=== PATIENT | male | born 1965 | race African-American/Black ===

== ENCOUNTER 2017-05-01 11:07 | Inpatient (IN) | payer OTHER ==
[2017-05-01 11:40] VITALS: BMI 22.4
--- NOTE | 2017-05-01 13:12 | HP ---
CIWA Score - CIWA Score Nausea/Vomitin Muscle Tremors: 3 Anxiety: 3 Agitation: 3 Paroxysmal Sweats: 2 Orientation: 0-Oriented Tacttile Disturbances: 2-Mild Itch/Numbness/Burn Auditory Disturbances: 2-Mild Harshness/Frighten Visual Disturbances: 1-Very Mild Sensitivity Headache: 2-Mild CIWA-Ar Total Score: 21 Admission ROS BHS - HPI Chief Complaint: I NEED HELP TO STOP DRINKING ALCOHOL AND COCAINE,I WANTED TO GET ON TRACK Allergies/Adverse Reactions: Allergies Allergy/AdvReac Type Severity Reaction Status Date / Time No Known Drug Allergies Allergy Verified 05/01/17 13:05 lactose AdvReac Intermediate Nausea Verified 05/01/17 13:05 History of Present Illness: THIS 52 YEARS OLD MALE WITH ALCOHOL AND COCAINE DEPENDENCE,SEEKING DETOX, WITHDRAWAL SYMPTOM,LAST DETOX [facility] IN 02/03 SYNCOPE MULTIPLE ADMISSIONS IN DETOX WEIGHT LOSS LONGEST PERIOD OF SOBRIETY 18 MONTHS - Ebola screening Have you traveled outside of the country in the last 21 days: No (N) Have you had contact with anyone from an Ebola affected area: No Have you been sick,other than usual withdrawal symptoms: No Do you have a fever: No - Review of Systems Constitutional: Loss of Appetite, Malaise, Night Sweats, Changes in sleep, Weakness, Unintentional Wgt. Loss EENT: reports: Nose Congestion Respiratory: reports: No Symptoms reported, Productive cough Cardiac: reports: No Symptoms Reported GI: reports: Diarrhea, Nausea, Vomiting, Abdominal cramping : reports: No Symptoms Reported Musculoskeletal: reports: Back Pain, Muscle Pain Integumentary: reports: Dryness Neuro: reports: Headache, Tremors Endocrine: reports: No Symptoms Reported Hematology: reports: No Symptoms Reported Psychiatric: reports: No Sypmtoms Reported, Judgement Intact, Mood/Affect Appropiate, Orientated x3 Patient History - Patient Medical History Hx Anemia: No Hx Asthma: No Hx Chronic Obstructive Pulmonary Disease (COPD): No Hx Cancer: No Hx Cardiac Disorders: No Hx Congestive Heart Failure: No Hx Hypertension: No Hx Hypercholesterolemia: No Hx Pacemaker: No HX Cerebrovascular Accident: No Hx Seizures: No Hx Dementia: No Hx Diabetes: No Hx Gastrointestinal Disorders: No Hx Liver Disease: No Hx Genitourinary Disorders: No Hx Sexually Transmitted Disorders: No Hx Renal Disease (ESRD): No Hx Thyroid Disease: No Hx Human Immunodeficiency Virus (HIV): No (LAST TESTED 02/03 NEGATIVE) Hx Hepatitis C: No Hx Depression: No Hx Suicide Attempt: No Hx Bipolar Disorder: No Hx Schizophrenia: No Other Medical History: NO SUICIDAL,NO HOMICIDAL - Patient Surgical History Past Surgical History: No Anesthesia Reaction: No - PPD History Previous Implant?: Yes Documented Results: Positive w/o proof Implanted On Prior [facility] Admission?: No PPD to be Administered?: No - Smoking Cessation Smoking history: Current every day smoker Have you smoked in the past 12 months: Yes Aproximately how many cigarettes per day: 10 Cigars Per Day: 0 Hx Chewing Tobacco Use: No Initiated information on smoking cessation: Yes 'Breaking Loose' booklet given: 05/01/17 - Substance & Tx. History Hx Alcohol Use: Yes Hx Substance Use: Yes Substance Use Type: Alcohol, Cocaine Hx Substance Use Treatment: Yes ([facility] 02/03 ) - Substances Abused Alcohol Route: Oral Frequency: Daily Amount used: BEER(6-PK 12 OZ CANS) Age of first use: 13 Date of Last Use: 04/30/17 Cocaine Route: Smoking Frequency: 3-6 times per week Amount used: $100 Age of first use: 18 Date of Last Use: 04/29/17 Family Disease History - Family Disease History Family Disease History: Other: Father (,EMPHYSEMA), Mother ( PANCREATIC CANCER), Sister (alcohol) Admission Physical Exam S - Vital Signs Vital Signs: Vital Signs - 24 hr 05/01/17 11:38 Temperature 98.0 F Pulse Rate 67 Respiratory 18 Rate Blood Pressure 124/76 - Physical General Appearance: Yes: Moderate Distress, Tremorous, Irritable, Sweating, Anxious HEENTM: Yes: Normal ENT Inspection, VESNA, Pharynx Normal Respiratory: Yes: Lungs Clear, Normal Breath Sounds, No Respiratory Distress Neck: Yes: Within Normal Limits, Supple, Trachea in good position Breast: Yes: Within Normal Limits Cardiology: Yes: Within Normal Limits, Regular Rhythm, Regular Rate, S1, S2 Abdominal: Yes: Within Normal Limits, Normal Bowel Sounds, Non Tender, Flat, Soft Genitourinary: Yes: Within Normal Limits Back: Yes: Muscle Spasm Musculoskeletal: Yes: Back pain, Muscle Pain Extremities: Yes: Within Normal Limits, Normal Range of Motion, Tremors 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, Fully Oriented, Alert, Motor Strength 5/5 Integumentary: Yes: Dry Lymphatic: Yes: Within Normal Limits - Diagnostic (1) Alcohol dependence with uncomplicated withdrawal Current Visit: Yes Status: Acute (2) Benign prostatic hypertrophy Current Visit: No Status: Acute (3) Cocaine dependence Current Visit: No Status: Acute (4) Nicotine dependence Current Visit: No Status: Acute (5) Syncope Current Visit: No Status: Acute (6) Weight decreased Current Visit: No Status: Acute Cleared for Admission S - Detox or Rehab [facility] Level of Care: Medically Managed Detox Regimen/Protocol: Librium [facility] Breath Alcohol Content Breath Alcohol Content: 0 Urine Drug Screen - Results Drug Screen Negative: No Urine Drug Screen Results: ANIBAL-Cocaine
[2017-05-01] MEDS ORDERED: MAG HYDROX/AL HYDROX/SIMETH 30 ML UNIT-DOSE CUP PO PRN (13:21)
[2017-05-01] MEDS ORDERED: MAGNESIUM HYDROX 2400MG/30ML ORAL SUSPENSION 30 ML CUP PO PRN (13:21)
[2017-05-01] MEDS ORDERED: MAGNESIUM CITRATE 300 ML BOTTLE PO PRN (13:21)
[2017-05-01] MEDS ORDERED: LOPERAMIDE HCL 2 MG CAPSULE PO PRN (13:21)
[2017-05-01] MEDS ORDERED: IBUPROFEN 400 MG TABLET (FP) PO PRN (13:21)
[2017-05-01] MEDS ORDERED: ACETAMINOPHEN 325 MG TABLET (FP) PO PRN (13:21)
[2017-05-01] MEDS ORDERED: P-EPHED 60MG/TRIPROLIDI 2.5MG TABLET PO PRN (13:21)
[2017-05-01] MEDS ORDERED: chlordiazePOXIDE HCL 25 MG CAPSULE PO PRN (13:21)
[2017-05-01] MEDS ORDERED: chlordiazePOXIDE HCL 25 MG CAPSULE PO ONE (13:54)
[2017-05-01] MEDS: NICOTINE 14 MG/24 HOURS TOPICAL PATCH TD SCH (14:07)
[2017-05-01 17:08] LABS: URINE APPEARANCE SLCLOUDY; URINE BILIRUBIN NEGATIVE (NEGATIVE); URINE BLOOD NEGATIVE (NEGATIVE); URINE COLOR YELLOW; URINE GLUCOSE (UA) NEGATIVE (NEGATIVE); URINE KETONE NEGATIVE (NEGATIVE); URINE LEUK ESTERASE NEGATIVE (NEGATIVE); URINE NITRITE POSITIVE (NEGATIVE); URINE PROTEIN NEGATIVE (NEGATIVE); URINE UROBILINOGEN NEGATIVE mg/dL (0.2-1.0)
[2017-05-01 17:29] LABS: EPI CELLS RARE /HPF (FEW); URINE BACTERIA RARE /hpf (NONE SEEN); URINE MUCUS RARE
[2017-05-01] MEDS: TAMSULOSIN HCL 0.4 MG CAP.ER.24H (FP) PO SCH (17:52)
[2017-05-01] MEDS: chlordiazePOXIDE HCL 25 MG CAPSULE PO SCH ×2 (17:52→22:21)
[2017-05-01] MEDS: guaiFENesin/D-METHORPHAN HB 10 ML UNIT-DOSE CUPS PO PRN (17:53)
[2017-05-01] MEDS: THIAMINE HCL 100 MG TABLET (FP) PO SCH (22:21)
[2017-05-02] MEDS: MENTHOL/PHENOL 1 EACH UD MM PRN ×3 (00:47→23:53)
[2017-05-02] MEDS: guaiFENesin/D-METHORPHAN HB 10 ML UNIT-DOSE CUPS PO PRN ×3 (00:47→20:50)
[2017-05-02] MEDS: chlordiazePOXIDE HCL 25 MG CAPSULE PO SCH ×4 (05:29→22:21)
[2017-05-02] MEDS ORDERED: AZITHROMYCIN 250 MG TABLET PO ONE (09:02)
[2017-05-02 09:55] LABS: HEMATOCRIT 43.1 % (35.4-49); HEMOGLOBIN 13.9 GM/dL (11.7-16.9); MCHC 32.3 g/dl (32.0-35.9); MEAN CELL VOLUME 83.7 fl (80-96); MEAN PLT VOLUME 8.6 fl (7.5-11.1); PLATELET COUNT 256 K/MM3 (134-434); RBC 5.14 M/mm3 (4.00-5.60); RDW 14.1 % (11.9-15.9); WHITE BLOOD COUNT 7.4 K/mm3 (4.0-10.0)
--- NOTE | 2017-05-02 09:58 | PN ---
S CIWA - CIWA Score Nausea/Vomitin Muscle Tremors: 3 Anxiety: 3 Agitation: 2 Paroxysmal Sweats: 1-Minimal Palms Moist Orientation: 0-Oriented Tacttile Disturbances: 1-Very Mild Itch/Numbness Auditory Disturbances: 1-Very Mild Visual Disturbances: 0-None Headache: 2-Mild CIWA-Ar Total Score: 16 BHS Progress Note (SOAP) Subjective: ALERT,IRRITABLE,ANXIOUS,TREMOR,INTERRUPTED SLEEP Objective: 05/02/17 10:01 Vital Signs Temperature 96.4 F L 05/02/17 06:17 Pulse Rate 97 H 05/02/17 06:17 Respiratory Rate 18 05/02/17 06:17 Blood Pressure 117/85 05/02/17 06:17 O2 Sat by Pulse Oximetry (%) EKG NSR,NOR MAL ECG Laboratory Last Values WBC 7.4 K/mm3 (4.0-10.0) 05/02/17 05:45 RBC 5.14 M/mm3 (4.00-5.60) 05/02/17 05:45 Hgb 13.9 GM/dL (11.7-16.9) D 05/02/17 05:45 Hct 43.1 % (35.4-49) 05/02/17 05:45 MCV 83.7 fl (80-96) 05/02/17 05:45 MCH 27.0 pg (25.7-33.7) 05/02/17 05:45 MCHC 32.3 g/dl (32.0-35.9) 05/02/17 05:45 RDW 14.1 % (11.9-15.9) 05/02/17 05:45 Plt Count 256 K/MM3 (134-434) 05/02/17 05:45 MPV 8.6 fl (7.5-11.1) 05/02/17 05:45 Urine Color Yellow 05/01/17 13:00 Urine Appearance Slcloudy 05/01/17 13:00 Urine pH 7.0 (5.0-8.0) 05/01/17 13:00 Ur Specific [place] 1.014 (1.001-1.035) 05/01/17 13:00 Urine Protein Negative (NEGATIVE) 05/01/17 13:00 Urine Glucose (UA) Negative (NEGATIVE) 05/01/17 13:00 Urine Ketones Negative (NEGATIVE) 05/01/17 13:00 Urine Blood Negative (NEGATIVE) 05/01/17 13:00 Urine Nitrite Positive (NEGATIVE) 05/01/17 13:00 Urine Bilirubin Negative (NEGATIVE) 05/01/17 13:00 Urine Urobilinogen Negative mg/dL (0.2-1.0) 05/01/17 13:00 Ur Leukocyte Esterase Negative (NEGATIVE) 05/01/17 13:00 Urine WBC (Auto) 2 /hpf (3-5) 05/01/17 13:00 Urine RBC (Auto) 1 /hpf (0-3) 05/01/17 13:00 Ur Epithelial Cells Rare /HPF (FEW) 05/01/17 13:00 Urine Bacteria Rare /hpf (NONE SEEN) 05/01/17 13:00 Urine Mucus Rare 05/01/17 13:00 HIV 1&2 Antibody Screen Negative 05/01/17 14:00 HIV P24 Antigen Negative 05/01/17 14:00 LABS PENDING Assessment: 05/02/17 10:03 WITHDRAWAL SYMPTOM Plan: CONTINUE DETOX
--- NOTE | 2017-05-02 10:06 | PN ---
BHS Progress Note Note: COUGHING WITH YELLOWISH MUCOUS FOR 7 DAYS,LUNG CLEAR,ACUTE BRONCHITIS, START ON ZITHROMAX
[2017-05-02 10:36] LABS: CHLORIDE 104 mmol/L (98-107); POTASSIUM 4.1 mmol/L (3.5-5.1); SODIUM 139 mmol/L (136-145)
[2017-05-02] MEDS: NICOTINE 14 MG/24 HOURS TOPICAL PATCH TD SCH ×2 (10:36→10:40)
[2017-05-02] MEDS: PRENATAL VITAMINS W/ FOLIC ACID TABLET (FP) PO SCH (10:36)
[2017-05-02] MEDS: TAMSULOSIN HCL 0.4 MG CAP.ER.24H (FP) PO SCH ×2 (10:39→18:19)
[2017-05-02 10:59] LABS: ALBUMIN 3.5 g/dl (3.4-5.0); ALK PHOS 98 U/L (45-117); ANION GAP 8 (8-16); BILIRUBIN,TOTAL 0.6 mg/dL (0.2-1.0); BLOOD UREA NITROGEN 10 mg/dL (7-18); CALCIUM 9.2 mg/dL (8.5-10.1); CO2 27 mmol/L (21-32); GLUCOSE,RANDOM 81 mg/dL (74-106); SGOT/AST 29 U/L (15-37); SGPT/ALT 34 U/L (12-78); TOT PROT 6.5 g/dl (6.4-8.2)
--- NOTE | 2017-05-02 13:56 | EKG ---
Test Reason : Blood Pressure : / mmHG Vent. Rate : 078 BPM Atrial Rate : 078 BPM P-R Int : 178 ms QRS Dur : 086 ms QT Int : 370 ms P-R-T Axes : 063 033 038 degrees QTc Int : 421 ms NORMAL SINUS RHYTHM NORMAL ECG WHEN COMPARED WITH ECG OF 01-MAY-2017 14:10, NO SIGNIFICANT CHANGE WAS FOUND Confirmed by MD Fleming Edward ([id number]) on 05/02/2017 1:56:05 PM Referred By: Confirmed By:Fredrick Fleming MD
--- NOTE | 2017-05-02 14:00 | EKG ---
Test Reason : Blood Pressure : / mmHG Vent. Rate : 054 BPM Atrial Rate : 054 BPM P-R Int : 178 ms QRS Dur : 082 ms QT Int : 398 ms P-R-T Axes : 064 025 055 degrees QTc Int : 377 ms SINUS BRADYCARDIA POSSIBLE LEFT ATRIAL ENLARGEMENT BORDERLINE ECG NO PREVIOUS ECGS AVAILABLE Confirmed by MD Bernadette, Fredrick ([id number]) on 05/02/2017 2:00:29 PM Referred By: Confirmed By:Fredrick Fleming MD
[2017-05-02] MEDS: THIAMINE HCL 100 MG TABLET (FP) PO SCH (22:21)
[2017-05-03] MEDS: chlordiazePOXIDE HCL 25 MG CAPSULE PO SCH ×2 (06:07→10:18)
[2017-05-03] MEDS: hydrOXYzine PAMOATE 50 MG CAPSULE (FP) PO PRN ×2 (09:48→22:40)
[2017-05-03] MEDS: NICOTINE 14 MG/24 HOURS TOPICAL PATCH TD SCH (09:52)
[2017-05-03] MEDS ORDERED: AZITHROMYCIN 250 MG TABLET PO SCH (10:00)
[2017-05-03] MEDS: TAMSULOSIN HCL 0.4 MG CAP.ER.24H (FP) PO SCH (10:18)
[2017-05-03] MEDS: PRENATAL VITAMINS W/ FOLIC ACID TABLET (FP) PO SCH (10:19)
--- NOTE | 2017-05-03 10:53 | PN ---
S CIWA - CIWA Score Nausea/Vomitin Muscle Tremors: 3 Anxiety: 2 Agitation: 2 Paroxysmal Sweats: 1-Minimal Palms Moist Orientation: 0-Oriented Tacttile Disturbances: 1-Very Mild Itch/Numbness Auditory Disturbances: 1-Very Mild Visual Disturbances: 0-None Headache: 2-Mild CIWA-Ar Total Score: 15 BHS Progress Note (SOAP) Subjective: alert,irritable,anxious,interrupted sleep,tremor Objective: 05/03/17 10:49 Vital Signs Temperature 97.2 F L 05/03/17 10:22 Pulse Rate 81 05/03/17 10:22 Respiratory Rate 20 05/03/17 10:22 Blood Pressure 101/60 05/03/17 10:22 O2 Sat by Pulse Oximetry (%) Assessment: 05/03/17 10:50 withdrawal symptom but less Plan: continue detox,patient stated taking flomax 0.4 mgs po nightly,will changed flomax to 0.4 mg po hs
[2017-05-03] MEDS: chlordiazePOXIDE 5 MG CAPSULE PO SCH ×2 (17:09→22:39)
[2017-05-03] MEDS ORDERED: TAMSULOSIN HCL 0.4 MG CAP.ER.24H (FP) PO SCH (18:00)
[2017-05-03] MEDS: MENTHOL/PHENOL 1 EACH UD MM PRN (20:33)
[2017-05-03] MEDS: THIAMINE HCL 100 MG TABLET (FP) PO SCH (22:39)
[2017-05-03] MEDS: guaiFENesin/D-METHORPHAN HB 10 ML UNIT-DOSE CUPS PO PRN (22:41)
[2017-05-04] MEDS: chlordiazePOXIDE 5 MG CAPSULE PO SCH (05:32)
[2017-05-04] MEDS: guaiFENesin/D-METHORPHAN HB 10 ML UNIT-DOSE CUPS PO PRN (05:34)
[2017-05-04] MEDS: MENTHOL/PHENOL 1 EACH UD MM PRN (05:35)
[2017-05-04 06:27] VITALS: BP 102/71; TEMP 97.7
[2017-05-04 06:35] VITALS: PULSE 93
--- NOTE | 2017-05-04 08:06 | PN ---
BHS Progress Note (SOAP) Subjective: ALERT,NO COMPLAINT Objective: 05/04/17 08:04 Vital Signs Temperature 97.7 F 05/04/17 06:00 Pulse Rate 93 H 05/04/17 06:00 Respiratory Rate 18 05/04/17 06:00 Blood Pressure 102/71 05/04/17 06:00 O2 Sat by Pulse Oximetry (%) Assessment: 05/04/17 08:04 NO WITHDRAWAL SYMPTOM PATIENT IS STABLE FOR DISCHARGE Plan: DISCHARGE TODAY,FOLLOW UP WITH AFTER CARE PROGRAM ARRANGEMENT
--- NOTE | 2017-05-04 08:11 | DS ---
[facility] Detox Discharge Summary Admission Date: 05/01/17 Discharge Date: 05/04/17 - History Present History: Alcohol Dependence, Cocaine Dependence Additional Comments: PATIENT IS STABLE FOR DISCHARGE,FOLLOW UP WITH AFTER CARE PROGRAM ARRANGEMENT Pertinent Past History: BPH NICOTINE DEPENDENCE SYNCOPE WEIGHT DECREASE - Physical Exam Results Vital Signs: Vital Signs Temperature 97.7 F 05/04/17 06:00 Pulse Rate 93 H 05/04/17 06:00 Respiratory Rate 18 05/04/17 06:00 Blood Pressure 102/71 05/04/17 06:00 O2 Sat by Pulse Oximetry (%) - Treatment Hospital Course: Detox Protocol Followed, Detoxed Safely, Responded well, Discharged Condition Good Patient has Accepted a Rehab Referral to: DECLINED - Medication Discharge Medications: Ambulatory Orders Tamsulosin HCl [Flomax -] 0.4 mg PO BID #[id number] 06/08/14 - Diagnosis (1) Alcohol dependence with uncomplicated withdrawal Current Visit: Yes Status: Acute (2) Benign prostatic hypertrophy Current Visit: No Status: Acute (3) Cocaine dependence Current Visit: No Status: Acute (4) Nicotine dependence Current Visit: No Status: Acute (5) Syncope Current Visit: No Status: Acute (6) Weight decreased Current Visit: No Status: Acute - AMA Did Patient Leave Against Medical Advice: No
[2017-05-04] MEDS ORDERED: chlordiazePOXIDE HCL 10 MG CAPSULE PO SCH (17:00)
== END 2017-05-04 09:00 | disposition home or self-care (01) | DRG 774 ==
LOC: YASAS 11:07 → Y6N 13:29
PROVIDERS: ADMIT Internal Medicine; ATTEND Internal Medicine
PROC: HZ2ZZZZ Detoxification Services for Substance Abuse Treatment (ICD-10-PCS; principal; 2017-05-01)
DX: F10.230 Alcohol dependence with withdrawal, uncomplicated (principal); F14.20 Cocaine dependence, uncomplicated; F17.210 Nicotine dependence, cigarettes, uncomplicated; N40.0 Benign prostatic hyperplasia without lower urinary tract symptoms; R55 Syncope and collapse; R63.4 Abnormal weight loss; Z68.22 Body mass index [BMI] 22.0-22.9, adult
CPT/HCPCS: 36415; 71045-TC-FY; 80053; 81003; 81015; 85027; 86593; 87389; 93005; 93010

== ENCOUNTER 2018-07-19 12:07 | Inpatient (IN) | payer OTHER | END 2018-08-02 10:30 | disposition home or self-care (01) | LOC: YASAS 12:07 → Y5N 14:01 ==

== ENCOUNTER 2019-02-16 14:43 | Inpatient (IN) | payer OTHER ==
[2019-02-16 15:50] VITALS: BMI 20.7
--- NOTE | 2019-02-16 20:22 | HP ---
CIWA Score Nausea/Vomitin-Mild Nausea/No Vomiting Muscle Tremors: None Anxiety: 4-Mod. Anxious/Guarded Agitation: 4-Moderately Restless Paroxysmal Sweats: 3 Orientation: 0-Oriented Tacttile Disturbances: 0-None Auditory Disturbances: 2-Mild Harshness/Frighten (to loud noise) Visual Disturbances: 3-Moderate Sensitivity (bright lights) Headache: 3-Moderate CIWA-Ar Total Score: 20 - Admission Criteria [facility] Guidelines: Admission for Medically Managed Detox: Requires at least one of the followin. CIWA greater than 12 2. Seizures within the past 24 hours 3. Delirium tremens within the past 24 hours 4. Hallucinations within the past 24 hours 5. Acute intervention needed for co occurring medical disorder 6. Acute intervention needed for co occurring psychiatric disorder 7. Severe withdrawal that cannot be handled at a lower level of care (continued vomiting, continued diarrhea, abnormal vital signs) requiring intravenous medication and/or fluids 8. Patient presents the following: CIWA greater than 12 Admission Criteria Met: Admission criteria met Admitting History and Physical - Smoking History Smoking history: Current every day smoker Have you smoked in the past 12 months: Yes Aproximately how many cigarettes per day: 10 - Alcohol/Substance Use Hx Alcohol Use: Yes Admission ROS S - HPI Chief Complaint: seeking detox for alcohol dependence Allergies/Adverse Reactions: Allergies Allergy/AdvReac Type Severity Reaction Status Date / Time No Known Drug Allergies Allergy Verified 07/19/18 12:45 lactose AdvReac Intermediate Nausea Verified 02/16/19 15:46 History of Present Illness: HERE FOR ALCOHOL DETOX. CLIENT IS SELF REFERRED. KNOWN TO THE PROGRAM. LAST HERE 07/2018. CLIENT REPORTS RELAPSING ABOUT 5 MONTHS AFTER DC. HE REPORTS DAILY USE OF ALCOHOL FOR THE PAST 3 MONTHS. SEVERAL CANS OF BEERS AND 5 NIPS OF VODKA. LAST USE TODAY AROUND 2 AM. 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 DENIES SEIZURES, + AVH WHEN USING CRACK. PRESENTLY DENIES. LONGEST CLEAN TIME 8.5 MONTHS X 2. LIVES WITH FAMILY, UNEMPLOYED, [place]. Exam Limitations: No Limitations - Ebola screening Have you traveled outside of the country in the last 21 days: No Have you had contact with anyone from an Ebola affected area: No Have you been sick,other than usual withdrawal symptoms: No Do you have a fever: No - Review of Systems Constitutional: Chills, Loss of Appetite, Night Sweats, Changes in sleep EENT: reports: Blurred Vision (EYE GLASSES READING), Dental Problems (MISSING TOOTH) Respiratory: reports: No Symptoms reported, Other (TB EXPOSURE WITH TXMENT) Cardiac: reports: No Symptoms Reported GI: reports: Nausea, Poor Appetite, Poor Fluid Intake : reports: Other (BPH W/ URINARY RETENTION) Musculoskeletal: reports: Joint Pain (R/T OA) Integumentary: reports: Other (R HAND ABRASIONS FROM A FALL 2 DAYS AGO WHILE INTOXICATED) Neuro: reports: Headache, Numbness (BOTH FEET), Other (BLACK OUTS) Endocrine: reports: No Symptoms Reported Hematology: reports: No Symptoms Reported Psychiatric: reports: Orientated x3, Agitated (IRRITABLE), Anxious Other Systems: Reviewed and Negative Patient History - Patient Medical History Hx Anemia: No Hx Asthma: No Hx Chronic Obstructive Pulmonary Disease (COPD): Yes Hx Cancer: No Hx Cardiac Disorders: No Hx Congestive Heart Failure: No Hx Hypertension: No Hx Hypercholesterolemia: No Hx Pacemaker: No HX Cerebrovascular Accident: No Hx Seizures: No Hx Dementia: No Hx Diabetes: No Hx Gastrointestinal Disorders: No Hx Liver Disease: No Hx Genitourinary Disorders: Yes (BPH) Hx Sexually Transmitted Disorders: No Hx Renal Disease (ESRD): No Hx Thyroid Disease: No Hx Human Immunodeficiency Virus (HIV): No Hx Hepatitis C: No Hx Depression: No Hx Suicide Attempt: No Hx Bipolar Disorder: No Hx Schizophrenia: No Other Medical History: +PPD, - Patient Surgical History Past Surgical History: No Anesthesia Reaction: No - PPD History Previous Implant?: No Documented Results: Positive w/o proof Implanted On Prior [facility] Admission?: No Date: 05/02/17 Results: CXR PPD to be Administered?: No - Smoking Cessation Smoking history: Current every day smoker Have you smoked in the past 12 months: Yes Aproximately how many cigarettes per day: 10 Cigars Per Day: 0 Hx Chewing Tobacco Use: No Initiated information on smoking cessation: Yes 'Breaking Loose' booklet given: 02/16/19 - Substance & Tx. History Hx Alcohol Use: Yes Hx Substance Use: Yes Substance Use Type: Alcohol, Cocaine Hx Substance Use Treatment: Yes ([facility]) - Substances abused Alcohol Substance route: Oral Frequency: Daily Amount used: 2 six pks beers ( 12 oz cans) 4nips Age of first use: 13 Date of last use: 02/16/19 (1/2 PINT) Crack Substance route: Smoking Frequency: Daily Amount used: 1 gram Age of first use: 18 Date of last use: 02/16/19 Cocaine Substance route: Smoking Frequency: Daily Amount used: 1 gram Age of first use: 18 Date of last use: 02/16/19 Admission Physical Exam S - Vital Signs Vital Signs: Vital Signs - 24 hr 02/16/19 15:47 Temperature 97.3 F L Pulse Rate 92 H Respiratory 16 Rate Blood Pressure 102/70 - Physical General Appearance: Yes: Mild Distress, Tremorous (FELT), Sweating, Anxious HEENTM: Yes: EOMI, Normocephalic, Normal Voice, VESNA, Pharynx Normal, Other ( MISSING TEETH) Respiratory: Yes: Chest Non-Tender, Lungs Clear, Normal Breath Sounds, No Respiratory Distress, No Accessory Muscle Use Neck: Yes: No masses,lesions,Nodules, Supple, Trachea in good position Breast: Yes: Breasts Symetrical Cardiology: Yes: Regular Rhythm, Regular Rate, S1, S2 Abdominal: Yes: Non Tender, Soft, Increased Bowel Sounds Genitourinary: Yes: Pain (RETENTION 2/2 BPH WITH INCOMPLETE BLADDER EMPTYING. CLIENT REPORTS DAILY SELF CATHERIZATION) Back: Yes: Within Normal Limits Musculoskeletal: Yes: full range of Motion, Gait Steady Extremities: Yes: Normal Range of Motion, Tremors (FELT), Swelling (R HAND S/P DALL 2 DAYS AGO. SEEN IN [facility] ER TODAY. XRAY OF R HAND NEG FOR FX AND DISLOCATION. SEE ATTACHED REPORT) Neurological: Yes: Fully Oriented, Alert, Motor Strength 5/5, Other (ANXIOUS) Integumentary: Yes: Dry, Warm, Other (ABRASION TO FINGERS OF R HAND 2/2 TO FALL. NO SX/S OF INFECTION) Lymphatic: Yes: Within Normal Limits - Diagnostic (1) Urinary retention due to benign prostatic hyperplasia Current Visit: Yes Status: Chronic (2) Urinary retention with incomplete bladder emptying Current Visit: Yes Status: Chronic (3) Abrasion of finger of right hand Current Visit: Yes Status: Acute Qualifiers: Encounter type: subsequent encounter Qualified Code(s): S60.419D - Abrasion of unspecified finger, subsequent encounter (4) Cocaine dependence, uncomplicated Current Visit: Yes Status: Acute (5) Alcohol dependence with uncomplicated withdrawal Current Visit: Yes Status: Acute (6) Benign prostatic hypertrophy Current Visit: Yes Status: Chronic (7) Intermittent self-catheterization of bladder Current Visit: Yes Status: Chronic (8) Nicotine dependence Current Visit: Yes Status: Chronic Qualifiers: Nicotine product type: cigarettes Substance use status: uncomplicated Qualified Code(s): F17.210 - Nicotine dependence, cigarettes, uncomplicated (9) Non compliance w medication regimen Current Visit: Yes Status: Suspected Cleared for Admission S - Detox or Rehab S Level of Care: Medically Managed (VALIUM) Detox Regimen/Protocol: Valium Claeared for Rehab Admission: No Breathalyzer - Breathalyzer Breathalyzer: 0 Urine Drug Screen - Test Device Lot number: [id number] Expiration date: 10/17/20 - Control Is test valid?: Yes - Results Drug screen NEGATIVE: No Urine drug screen results: ANIBAL-Cocaine Inpatient Rehab Admission - Rehab Decision to Admit Inpatient rehab admission?: No
[2019-02-16] MEDS ORDERED: ACETAMINOPHEN 325 MG TABLET (FP) PO PRN ×2 (20:32)
[2019-02-16] MEDS ORDERED: NICOTINE POLACRILEX 2 MG GUM BUC PRN (20:32)
[2019-02-16] MEDS ORDERED: MAGNESIUM HYDROX 2400MG/30ML ORAL SUSPENSION 30 ML CUP PO PRN (20:32)
[2019-02-16] MEDS ORDERED: MAG HYDROX/AL HYDROX/SIMETH 30 ML UNIT-DOSE CUP PO PRN (20:32)
[2019-02-16] MEDS ORDERED: BISMUTH SUBSALICYLATE 524 MG/30 ML UD PO PRN (20:32)
[2019-02-16] MEDS ORDERED: diazePAM 5 MG TABLET PO PRN (20:32)
[2019-02-16] MEDS ORDERED: MELATONIN 5 MG TABLETS PO PRN (20:32)
[2019-02-16] MEDS ORDERED: MAGNESIUM CITRATE 300 ML BOTTLE PO PRN (20:32)
[2019-02-16] MEDS ORDERED: P-EPHED 60MG/TRIPROLIDI 2.5MG TABLET PO PRN (20:32)
[2019-02-16] MEDS ORDERED: hydrOXYzine PAMOATE 25 MG CAPSULE (FP) PO PRN (20:32)
[2019-02-16] MEDS ORDERED: DICYCLOMINE HCL 10 MG CAPSULE PO PRN (20:32)
[2019-02-16] MEDS ORDERED: METHOCARBAMOL 500 MG TABLET PO PRN (20:32)
[2019-02-16] MEDS ORDERED: ONDANSETRON *ODT* 4 MG TABLET SL PRN (20:32)
[2019-02-16] MEDS: BACITRACIN 15 GM TUBE TOPICAL OINTMENT TP SCH (23:16)
[2019-02-16] MEDS: THIAMINE HCL 100 MG TABLET (FP) PO SCH (23:17)
[2019-02-16] MEDS: diazePAM 5 MG TABLET PO SCH (23:17)
[2019-02-17] MEDS: diazePAM 5 MG TABLET PO SCH ×3 (05:42→22:34)
[2019-02-17] MEDS ORDERED: TAMSULOSIN HCL 0.4 MG CAP PO SCH (08:30)
[2019-02-17] MEDS ORDERED: NICOTINE 14 MG/24 HOURS TOPICAL PATCH TD SCH (10:00)
[2019-02-17] MEDS: PRENATAL VITAMINS W/ FOLIC ACID TABLET (FP) PO SCH (10:40)
[2019-02-17] MEDS: BACITRACIN 15 GM TUBE TOPICAL OINTMENT TP SCH (10:42)
[2019-02-17] MEDS ORDERED: NICOTINE 7 MG/24 HOURS TOPICAL PATCH TD SCH (11:06)
--- NOTE | 2019-02-17 12:19 | PN ---
S CIWA - CIWA Score Nausea/Vomitin-No Nausea/No Vomiting Muscle Tremors: 3 Anxiety: 3 Agitation: 3 Paroxysmal Sweats: 3 Orientation: 0-Oriented Tacttile Disturbances: 0-None Auditory Disturbances: 0-None Visual Disturbances: 0-None Headache: 0-None Present CIWA-Ar Total Score: 12 BHS Progress Note (SOAP) Subjective: sweats shakes interrupted sleep restless body aches i need my flomax scheduled to be given for 10pm. i need nicotine patch 7mcq. I have a cough with phlegm Objective: 02/17/19 12:19 Vital Signs Temperature 98.7 F 02/17/19 09:45 Pulse Rate 85 02/17/19 09:45 Respiratory Rate 18 02/17/19 09:45 Blood Pressure 110/63 02/17/19 09:45 O2 Sat by Pulse Oximetry (%) labs pending aaox3 ambulating no acute distress Assessment: 02/17/19 12:19 withdrawals lungs assessed +rhonci noted; productive greenish phlegm noted Plan: continue detox increase fluids flomax ordered for 10pm as per pt request nicotine patch 7mcg as per pt request zithromax 500mg x one then 250mg x 4 days
[2019-02-17 12:36] LABS: HEMOGLOBIN 14.5 GM/dL (11.7-16.9); MCH 27.9 pg (25.7-33.7); MEAN CELL VOLUME 84.7 fl (80-96); MEAN PLT VOLUME 8.5 fl (7.5-11.1); PLATELET COUNT 219 K/MM3 (134-434); RBC 5.19 M/mm3 (4.00-5.60); RDW 13.9 % (11.9-15.9)
[2019-02-17 12:50] LABS: ALBUMIN 3.4 g/dl (3.4-5.0); BILIRUBIN,TOTAL 1.4 mg/dL (0.2-1); BLOOD UREA NITROGEN 20.5 mg/dL (7-18); CALCIUM 8.5 mg/dL (8.5-10.1); CREATININE 0.9 mg/dL (0.55-1.3); TOT PROT 6.2 g/dl (6.4-8.2)
[2019-02-17] MEDS: IBUPROFEN 400 MG TABLET (FP) PO PRN (14:12)
[2019-02-17] MEDS ORDERED: AZITHROMYCIN 250 MG TABLET PO ONE (15:02)
[2019-02-17] MEDS: THIAMINE HCL 100 MG TABLET (FP) PO SCH (22:34)
[2019-02-17] MEDS: TAMSULOSIN HCL 0.4 MG CAP PO SCH (22:34)
[2019-02-18] MEDS: guaiFENesin 200 MG/10 ML 10 ML UNIT-DOSE CUPS PO PRN ×3 (04:31→21:30)
[2019-02-18] MEDS: diazePAM 5 MG TABLET PO SCH ×2 (05:43→18:04)
[2019-02-18] MEDS: BACITRACIN 15 GM TUBE TOPICAL OINTMENT TP SCH (09:42)
[2019-02-18] MEDS: PRENATAL VITAMINS W/ FOLIC ACID TABLET (FP) PO SCH (09:42)
[2019-02-18] MEDS: MENTHOL/PHENOL 1 EACH UD MM PRN ×2 (09:46→21:30)
[2019-02-18] MEDS ORDERED: AZITHROMYCIN 250 MG TABLET PO SCH (10:00)
[2019-02-18 10:21] LABS: EPI CELLS 8.7 /HPF (0-5/HPF); HYALINE CASTS 91 /lpf (0-8); PH,URINE 7.5 (5.0-8.0); URINE APPEARANCE TURBID; URINE BACTERIA 2350.1 /hpf (NEGATIVE); URINE BILIRUBIN NEGATIVE (NEGATIVE); URINE COLOR YELLOW; URINE GLUCOSE (UA) NEGATIVE (NEGATIVE); URINE KETONE NEGATIVE (NEGATIVE); URINE LEUK ESTERASE 3+ (NEGATIVE); URINE NITRITE POSITIVE (NEGATIVE); URINE PROTEIN NEGATIVE (NEGATIVE); URINE WBC 172 /hpf (0-5)
[2019-02-18 10:47] LABS: URINE RBC 3 /hpf (0-4)
--- NOTE | 2019-02-18 11:44 | PN ---
S CIWA - CIWA Score Nausea/Vomitin-Mild Nausea/No Vomiting Muscle Tremors: 1-None Visible, but [place] Anxiety: 2 Agitation: 2 Paroxysmal Sweats: No Perspiration Orientation: 0-Oriented Tacttile Disturbances: 1-Very Mild Itch/Numbness Auditory Disturbances: 0-None Visual Disturbances: 0-None Headache: 1-Very Mild CIWA-Ar Total Score: 8 BHS Progress Note (SOAP) Subjective: alert,irritable,anxious,interrupted sleep Objective: 02/18/19 11:42 Vital Signs Temperature 99.5 F 02/18/19 09:57 Pulse Rate 92 H 02/18/19 09:57 Respiratory Rate 18 02/18/19 09:57 Blood Pressure 114/79 02/18/19 09:57 O2 Sat by Pulse Oximetry (%) Laboratory Last Values WBC 8.0 K/mm3 (4.0-10.0) 02/17/19 07:50 RBC 5.19 M/mm3 (4.00-5.60) 02/17/19 07:50 Hgb 14.5 GM/dL (11.7-16.9) 02/17/19 07:50 Hct 44.0 % (35.4-49) 02/17/19 07:50 MCV 84.7 fl (80-96) 02/17/19 07:50 MCH 27.9 pg (25.7-33.7) 02/17/19 07:50 MCHC 33.0 g/dl (32.0-35.9) 02/17/19 07:50 RDW 13.9 % (11.9-15.9) 02/17/19 07:50 Plt Count 219 K/MM3 (134-434) D 02/17/19 07:50 MPV 8.5 fl (7.5-11.1) 02/17/19 07:50 Sodium 140 mmol/L (136-145) 02/17/19 07:50 Potassium 4.0 mmol/L (3.5-5.1) 02/17/19 07:50 Chloride 105 mmol/L (98-107) 02/17/19 07:50 Carbon Dioxide 31 mmol/L (21-32) 02/17/19 07:50 Anion Gap 4 MMOL/L (8-16) L 02/17/19 07:50 BUN 20.5 mg/dL (7-18) H 02/17/19 07:50 Creatinine 0.9 mg/dL (0.55-1.3) 02/17/19 07:50 Est GFR (CKD-EPI)AfAm 112.62 02/17/19 07:50 Est GFR (CKD-EPI)NonAf 97.17 02/17/19 07:50 Random Glucose 95 mg/dL (74-106) 02/17/19 07:50 Calcium 8.5 mg/dL (8.5-10.1) 02/17/19 07:50 Total Bilirubin 1.4 mg/dL (0.2-1) H 02/17/19 07:50 AST 139 U/L (15-37) H 02/17/19 07:50 ALT 72 U/L (13-61) H 02/17/19 07:50 Alkaline Phosphatase 76 U/L (45-117) 02/17/19 07:50 Total Protein 6.2 g/dl (6.4-8.2) L 02/17/19 07:50 Albumin 3.4 g/dl (3.4-5.0) 02/17/19 07:50 Urine Color Yellow 02/18/19 07:50 Urine Appearance Turbid 02/18/19 07:50 Urine pH 7.5 (5.0-8.0) D 02/18/19 07:50 Ur Specific [place] 1.026 (1.010-1.035) 02/18/19 07:50 Urine Protein Negative (NEGATIVE) 02/18/19 07:50 Urine Glucose (UA) Negative (NEGATIVE) 02/18/19 07:50 Urine Ketones Negative (NEGATIVE) 02/18/19 07:50 Urine Blood Negative (NEGATIVE) 02/18/19 07:50 Urine Nitrite Positive (NEGATIVE) H 02/18/19 07:50 Urine Bilirubin Negative (NEGATIVE) 02/18/19 07:50 Urine Urobilinogen 1.0 mg/dL (0.2-1.0) 02/18/19 07:50 Ur Leukocyte Esterase 3+ (NEGATIVE) H 02/18/19 07:50 Urine WBC (Auto) 172 /hpf (0-5) 02/18/19 07:50 Urine RBC (Auto) 3 /hpf (0-4) 02/18/19 07:50 Urine Casts (Auto) 91 /lpf (0-8) 02/18/19 07:50 U Pathogenic Cast Auto None seen /lpf (NEGATIVE) 02/18/19 07:50 U Epithel Cells (Auto) 8.7 /HPF (0-5/HPF) 02/18/19 07:50 Urine Bacteria (Auto) 2350.1 /hpf (NEGATIVE) 02/18/19 07:50 Assessment: 02/18/19 11:43 withdrawal symptom Plan: continue detox ,valium regimen,uti,encourage oral fluid,bactrim ds 1 tab po bid, repeat cmp today,possible discharge in am
--- NOTE | 2019-02-18 12:01 | EKG ---
Test Reason : Blood Pressure : / mmHG Vent. Rate : 076 BPM Atrial Rate : 076 BPM P-R Int : 158 ms QRS Dur : 076 ms QT Int : 390 ms P-R-T Axes : 071 -03 035 degrees QTc Int : 438 ms NORMAL SINUS RHYTHM POSSIBLE LEFT ATRIAL ENLARGEMENT BORDERLINE ECG WHEN COMPARED WITH ECG OF 02-MAY-2017 08:57, NO SIGNIFICANT CHANGE WAS FOUND Confirmed by YOHANNES DE JESUS MD ([id number]) on 02/18/2019 12:00:30 PM Referred By: Confirmed By:YOHANNES DE JESUS MD
[2019-02-18] MEDS: SULFAMETHOXAZOLE/TRIMETHOPRIM 800MG/160MG D.S. TABLET PO SCH ×2 (14:14→21:29)
[2019-02-18] MEDS: IBUPROFEN 400 MG TABLET (FP) PO PRN (14:14)
[2019-02-18 15:59] LABS: ALBUMIN 3.1 g/dl (3.4-5.0); BILIRUBIN,TOTAL 0.4 mg/dL (0.2-1); BLOOD UREA NITROGEN 15.7 mg/dL (7-18); CALCIUM 8.6 mg/dL (8.5-10.1); CREATININE 0.9 mg/dL (0.55-1.3); POTASSIUM 3.8 mmol/L (3.5-5.1); TOT PROT 6.1 g/dl (6.4-8.2)
[2019-02-18 21:29] VITALS: BP 112/66
[2019-02-18] MEDS: TAMSULOSIN HCL 0.4 MG CAP PO SCH (21:29)
[2019-02-18] MEDS: THIAMINE HCL 100 MG TABLET (FP) PO SCH (21:30)
[2019-02-19] MEDS ORDERED: diazePAM 5 MG TABLET PO ONE (06:00)
[2019-02-19] MEDS: IBUPROFEN 400 MG TABLET (FP) PO PRN (06:13)
[2019-02-19] MEDS: guaiFENesin 200 MG/10 ML 10 ML UNIT-DOSE CUPS PO PRN (06:14)
[2019-02-19] MEDS: MENTHOL/PHENOL 1 EACH UD MM PRN (06:15)
[2019-02-19 07:34] VITALS: PULSE 95; TEMP 97.9
--- NOTE | 2019-02-19 08:47 | DS ---
[facility] Detox Discharge Summary Admission Date: 02/16/19 Discharge Date: 02/19/19 - History Present History: Alcohol Dependence, Cannabis Dependence - Physical Exam Results Vital Signs: Vital Signs Temperature 97.9 F 02/19/19 07:33 Pulse Rate 95 H 02/19/19 07:33 Respiratory Rate 20 02/19/19 07:33 Blood Pressure 112/66 02/18/19 21:28 O2 Sat by Pulse Oximetry (%) Pertinent Admission Physical Exam Findings: pt arrived in withdrawals Vital Signs Temperature 97.9 F 02/19/19 07:33 Pulse Rate 95 H 02/19/19 07:33 Respiratory Rate 20 02/19/19 07:33 Blood Pressure 112/66 02/18/19 21:28 O2 Sat by Pulse Oximetry (%) Laboratory Tests 02/17/19 02/17/19 02/18/19 07:50 07:50 07:50 WBC 8.0 RBC 5.19 Hgb 14.5 Hct 44.0 MCV 84.7 MCH 27.9 MCHC 33.0 RDW 13.9 Plt Count 219 D MPV 8.5 Sodium 140 Potassium 4.0 Chloride 105 Carbon Dioxide 31 Anion Gap 4 L BUN 20.5 H Creatinine 0.9 Est GFR (CKD-EPI)AfAm 112.62 Est GFR (CKD-EPI)NonAf 97.17 Random Glucose 95 Calcium 8.5 Total Bilirubin 1.4 H AST 139 H ALT 72 H Alkaline Phosphatase 76 Total Protein 6.2 L Albumin 3.4 Urine Color Yellow Urine Appearance Turbid Urine pH 7.5 D Ur Specific [place] 1.026 Urine Protein Negative Urine Glucose (UA) Negative Urine Ketones Negative Urine Blood Negative Urine Nitrite Positive H Urine Bilirubin Negative Urine Urobilinogen 1.0 Ur Leukocyte Esterase 3+ H Urine WBC (Auto) 172 Urine RBC (Auto) 3 Urine Casts (Auto) 91 U Pathogenic Cast Auto None seen U Epithel Cells (Auto) 8.7 Urine Bacteria (Auto) 2350.1 02/18/19 12:30 WBC RBC Hgb Hct MCV MCH MCHC RDW Plt Count MPV Sodium 139 Potassium 3.8 Chloride 105 Carbon Dioxide 29 Anion Gap 5 L BUN 15.7 Creatinine 0.9 Est GFR (CKD-EPI)AfAm 112.62 Est GFR (CKD-EPI)NonAf 97.17 Random Glucose 96 Calcium 8.6 Total Bilirubin 0.4 AST 66 H ALT 59 Alkaline Phosphatase 85 Total Protein 6.1 L Albumin 3.1 L Urine Color Urine Appearance Urine pH Ur Specific [place] Urine Protein Urine Glucose (UA) Urine Ketones Urine Blood Urine Nitrite Urine Bilirubin Urine Urobilinogen Ur Leukocyte Esterase Urine WBC (Auto) Urine RBC (Auto) Urine Casts (Auto) U Pathogenic Cast Auto U Epithel Cells (Auto) Urine Bacteria (Auto) aaox3 ambulating no acute distress - Treatment Hospital Course: Detox Protocol Followed, Detoxed Safely, Responded well, Discharged Condition Good, Rehab Referral Accepted Patient has Accepted a Rehab Referral to: pt declined; referral provided - Medication Discharge Medications: Ambulatory Orders Tamsulosin HCl [Flomax] 0.4 mg PO DAILY #30 capsule 08/01/18 - Diagnosis (1) Abrasion of finger of right hand Status: Acute Qualifiers: Encounter type: subsequent encounter Qualified Code(s): S60.419D - Abrasion of unspecified finger, subsequent encounter (2) Alcohol dependence Status: Acute (3) Alcohol dependence with uncomplicated withdrawal Status: Acute (4) Cannabis dependence Status: Acute (5) Cocaine dependence, uncomplicated Status: Acute (6) Syncope Status: Acute (7) UTI (urinary tract infection) Status: Acute Qualifiers: Urinary tract infection type: site unspecified (8) Weight decreased Status: Acute (9) Alcohol dependence Status: Chronic Qualifiers: Substance use status: uncomplicated Qualified Code(s): F10.20 - Alcohol dependence, uncomplicated (10) Benign prostatic hypertrophy Status: Chronic (11) Cocaine dependence Status: Chronic Qualifiers: Substance use status: uncomplicated Qualified Code(s): F14.20 - Cocaine dependence, uncomplicated (12) Intermittent self-catheterization of bladder Status: Chronic (13) Nicotine dependence Status: Chronic Qualifiers: Nicotine product type: cigarettes Substance use status: uncomplicated Qualified Code(s): F17.210 - Nicotine dependence, cigarettes, uncomplicated (14) Urinary retention due to benign prostatic hyperplasia Status: Chronic (15) Urinary retention with incomplete bladder emptying Status: Chronic (16) Non compliance w medication regimen Status: Suspected - AMA Did Patient Leave Against Medical Advice: No
== END 2019-02-19 07:50 | disposition home or self-care (01) | DRG 774 ==
LOC: YASAS 14:43 → Y6N 20:25
PROVIDERS: ADMIT Allergy & Immunology; ATTEND Allergy & Immunology
PROC: HZ2ZZZZ Detoxification Services for Substance Abuse Treatment (ICD-10-PCS; principal; 2019-02-16)
DX: F10.230 Alcohol dependence with withdrawal, uncomplicated (principal); F14.20 Cocaine dependence, uncomplicated; F12.20 Cannabis dependence, uncomplicated; F17.210 Nicotine dependence, cigarettes, uncomplicated; N39.0 Urinary tract infection, site not specified; N40.1 Benign prostatic hyperplasia with lower urinary tract symptoms; R33.8 Other retention of urine; M19.90 Unspecified osteoarthritis, unspecified site; R63.4 Abnormal weight loss; Z68.20 Body mass index [BMI] 20.0-20.9, adult; Z91.14 Patient's other noncompliance with medication regimen; Z78.9 Other specified health status; S60.512D Abrasion of left hand, subsequent encounter; W19.XXXD Unspecified fall, subsequent encounter
CPT/HCPCS: 36415; 71046-TC-FY; 80053; 81003; 85027; 86593; 93005; 93010

== ENCOUNTER 2020-01-31 16:04 | Inpatient (IN) | payer OTHER ==
[2020-01-31 18:50] VITALS: BMI 21.4
[2020-01-31] MEDS ORDERED: MENTHOL/PHENOL 1 EACH UD MM PRN (20:10)
[2020-01-31] MEDS ORDERED: MAGNESIUM CITRATE 300 ML BOTTLE PO PRN (20:10)
[2020-01-31] MEDS ORDERED: MAG HYDROX/AL HYDROX/SIMETH 30 ML UNIT-DOSE CUP PO PRN (20:10)
[2020-01-31] MEDS ORDERED: ACETAMINOPHEN 325 MG TABLET (FP) PO PRN ×2 (20:10)
[2020-01-31] MEDS ORDERED: METHOCARBAMOL 500 MG TABLET PO PRN (20:10)
[2020-01-31] MEDS ORDERED: NICOTINE POLACRILEX 2 MG GUM BUC PRN (20:10)
[2020-01-31] MEDS ORDERED: ONDANSETRON *ODT* 4 MG TABLET SL PRN (20:10)
[2020-01-31] MEDS ORDERED: BISMUTH SUBSALICYLATE 524 MG/30 ML UD PO PRN (20:10)
[2020-01-31] MEDS ORDERED: IBUPROFEN 400 MG TABLET (FP) PO PRN (20:10)
[2020-01-31] MEDS ORDERED: MAGNESIUM HYDROX 2400MG/30ML ORAL SUSPENSION 30 ML CUP PO PRN (20:10)
[2020-01-31] MEDS ORDERED: chlordiazePOXIDE HCL 25 MG CAPSULE PO PRN (20:13)
[2020-01-31] MEDS: hydrOXYzine PAMOATE 25 MG CAPSULE (FP) PO SCH (21:20)
[2020-01-31] MEDS: chlordiazePOXIDE HCL 25 MG CAPSULE PO SCH (22:36)
[2020-01-31] MEDS: MELATONIN 5 MG TABLETS PO SCH (22:36)
[2020-01-31] MEDS: TAMSULOSIN HCL 0.4 MG CAP PO SCH (22:36)
[2020-01-31] MEDS: THIAMINE HCL 100 MG TABLET (FP) PO SCH (22:36)
[2020-02-01] MEDS: hydrOXYzine PAMOATE 25 MG CAPSULE (FP) PO SCH ×5 (05:58→22:28)
[2020-02-01] MEDS: chlordiazePOXIDE HCL 25 MG CAPSULE PO SCH ×4 (05:58→22:27)
[2020-02-01] MEDS ORDERED: TAMSULOSIN HCL 0.4 MG CAP PO SCH (10:00)
[2020-02-01] MEDS: PRENATAL VITAMINS W/ FOLIC ACID TABLET (FP) PO SCH (10:21)
[2020-02-01] MEDS: NICOTINE 7 MG/24 HOURS TOPICAL PATCH TD SCH (10:21)
[2020-02-01 11:53] LABS: HEMATOCRIT 42.8 % (35.4-49); HEMOGLOBIN 14.3 GM/dL (11.7-16.9); MCH 28.4 pg (25.7-33.7); MCHC 33.3 g/dl (32.0-35.9); MEAN CELL VOLUME 85.2 fl (80-96); MEAN PLT VOLUME 8.5 fl (7.5-11.1); PLATELET COUNT 256 K/MM3 (134-434); RBC 5.03 M/mm3 (4.00-5.60); RDW 14.4 % (11.9-15.9); WHITE BLOOD COUNT 6.7 K/mm3 (4.0-10.0)
[2020-02-01 12:01] LABS: POTASSIUM 3.6 mmol/L (3.5-5.1)
[2020-02-01 12:22] LABS: BLOOD UREA NITROGEN 13.9 mg/dL (7-18); CALCIUM 8.8 mg/dL (8.5-10.1)
[2020-02-01 12:23] LABS: ALBUMIN 3.2 g/dl (3.4-5.0)
[2020-02-01 12:26] LABS: CREATININE 1.3 mg/dL (0.55-1.3)
[2020-02-01 12:27] LABS: BILIRUBIN,TOTAL 0.6 mg/dL (0.2-1)
[2020-02-01] MEDS: MELATONIN 5 MG TABLETS PO SCH (22:28)
[2020-02-01] MEDS: THIAMINE HCL 100 MG TABLET (FP) PO SCH (22:28)
[2020-02-01] MEDS: TAMSULOSIN HCL 0.4 MG CAP PO SCH (22:28)
[2020-02-02] MEDS: chlordiazePOXIDE HCL 25 MG CAPSULE PO SCH ×2 (05:55→10:19)
[2020-02-02] MEDS: hydrOXYzine PAMOATE 25 MG CAPSULE (FP) PO SCH ×3 (05:55→14:30)
[2020-02-02] MEDS: PRENATAL VITAMINS W/ FOLIC ACID TABLET (FP) PO SCH (10:20)
[2020-02-02] MEDS: NICOTINE 7 MG/24 HOURS TOPICAL PATCH TD SCH (10:20)
[2020-02-02 12:53] VITALS: BP 111/70; PULSE 95; TEMP 97.5
[2020-02-03] MEDS ORDERED: chlordiazePOXIDE HCL 10 MG CAPSULE PO PRN
[2020-02-03] MEDS ORDERED: chlordiazePOXIDE HCL 10 MG CAPSULE PO SCH (05:00)
[2020-02-04] MEDS ORDERED: chlordiazePOXIDE HCL 10 MG CAPSULE PO SCH (05:00)
[2020-02-05] MEDS ORDERED: chlordiazePOXIDE HCL 10 MG CAPSULE PO ONE (05:00)
== END 2020-02-02 15:04 | disposition home or self-care (01) | DRG 774 ==
LOC: YASAS 16:04 → Y3N 20:09
PROVIDERS: ADMIT Allergy & Immunology; ATTEND Allergy & Immunology
PROC: HZ2ZZZZ Detoxification Services for Substance Abuse Treatment (ICD-10-PCS; principal; 2020-01-31)
DX: F10.230 Alcohol dependence with withdrawal, uncomplicated (principal); F14.20 Cocaine dependence, uncomplicated; F12.10 Cannabis abuse, uncomplicated; F17.213 Nicotine dependence, cigarettes, with withdrawal; F19.24 Other psychoactive substance dependence with psychoactive substance-induced mood disorder; N40.0 Benign prostatic hyperplasia without lower urinary tract symptoms; M12.9 Arthropathy, unspecified; R73.9 Hyperglycemia, unspecified; R63.4 Abnormal weight loss; Z68.21 Body mass index [BMI] 21.0-21.9, adult; Z91.011 Allergy to milk products; Z59.0 Homelessness
CPT/HCPCS: 36415; 80053; 85027; 86780; C9803; U0003